=== PATIENT | female | born 1980 ===

== ENCOUNTER 2019-09-30 13:01 | Outpatient (CLI) | payer SELFPAY ==
[2019-09-30] MEDS ORDERED: LACTATED RINGERS 500 ML IV ONE (13:25)
[2019-09-30] MEDS ORDERED: LACTATED RINGERS 1,000 ML IV ONE (14:24)
[2019-09-30 14:28] LABS: Bacteria,Urine 2+ /HPF (Negative); Bilirubin,Urine NEG (Negative); Blood,Urine SM (Negative); Color,Urine Yellow (Yellow); Mucus,Urine FEW /HPF; Protein,Urine <15 mg/dL mg/dL (Negative); Urobilinogen,Urine < 2.0 mg/dL (<2.0)
[2019-09-30] MEDS ORDERED: cefTRIAXone/NS 1 GM/50 ML 1 GM/50 ML BAG IV ONE (16:15)
[2019-09-30] MEDS ORDERED: TERBUTALINE 1 MG/1 ML INJ SUB-Q ONE (16:39)
[2019-09-30] MEDS ORDERED: TERBUTALINE 1 MG/1 ML INJ ONE (16:39)
[2019-09-30] MEDS ORDERED: NIFEdipine*For Tocolysis only* 10 MG CAPSULE PO ONE ×2 (18:55→19:00)
[2019-09-30] MEDS ORDERED: NIFEdipine*For Tocolysis only* 10 MG CAPSULE PO SCH (19:00)
[2019-09-30 20:34] VITALS: BP 107/55
--- NOTE | 2019-09-30 21:38 | Event Note ---
Date: 09/30/19 Triage Note 09/30/2019: Patient presented to triage at 35 weeks, 2 days gestation with contractions. Patient denied leaking of fluid or vaginal bleeding. She states she had a small amount of spotting when wiping this AM and has had no further spotting. Patient denies fever, chills, flank pain, or malaise. Patient reports active movement. Contractions noted when patient arrived; resolved after IV hydration, one dose of SQ Brethine, and one dose of p.o. Procardia. Cervix thick and not dilated. No vaginal bleeding or leaking of fluid seen. Category 1 FHR tracing. BPP 8/8. Normal JOHN. Normal pelvic US. Urinalysis shows WBCs, RBCs. Rocephin 1 gram IV given. Patient states pain has resolved and she wants to go home. Consulted with Dr. Samuel re: this patient and all of the above and history of previous c-sections. Discharge home OK'd per Dr. Samuel. Advised patient to perform daily movement counting. Rx Augmentin called to [facility]. Advised pt. re: warning signs and signs of labor. Advised patient to follow up at [facility] on Wednesday.
--- NOTE | 2019-10-05 07:41 | Ultrasound Report ---
ULTRASOUND OBSTETRIC LIMITED ULTRASOUND BIOPHYSICAL PROFILE INDICATION / CLINICAL INFORMATION: abdominal pain, vaginal spotting. COMPARISON: None available. FINDINGS: BREATHING MOVEMENT = 2 GROSS BODY MOVEMENT = 2 TONE = 2 QUALITATIVE AMNIOTIC FLUID VOLUME = 2 TOTAL BIOPHYSICAL SCORE = 8/8 AMNIOTIC FLUID INDEX (cm) = 17.5 PRESENTATION: Cephalic. HEART RATE (beats per minute): 160 ADDITIONAL FINDINGS: The placenta is located posteriorly and appears unremarkable sonographically. IMPRESSION: 1. Biophysical Score = 8/8 2. No acute abnormality of the pelvis. Signer Name: Power Murillo MD Signed: 09/30/2019 3:47 PM Workstation Name: [id number]
== END 2019-09-30 21:35 | disposition home or self-care (01) ==
LOC: TRG 13:01 → APU 13:26 → TRG 21:35
PROVIDERS: ATTEND Obstetrics & Gynecology
DX: O46.93 Antepartum hemorrhage, unspecified, third trimester (principal); O09.523 Supervision of elderly multigravida, third trimester; Z3A.35 35 weeks gestation of pregnancy
CPT/HCPCS: 59025; 76815; 76819; 81001; 87086; 96365; 96372; J0696; J3105; J7120; 96360

== ENCOUNTER 2019-10-27 05:20 | Inpatient (IN) | payer OTHER ==
[2019-10-27] MEDS ORDERED: FAMOTIDINE 20 MG/2 ML INJ IV ONE (05:35)
[2019-10-27] MEDS ORDERED: METOCLOPRAMIDE 10 MG/2 ML INJ IV ONE (05:35)
[2019-10-27] MEDS ORDERED: BICITRA ORAL LIQD 30ML PO ONE (05:35)
[2019-10-27] MEDS: LACTATED RINGERS 1,000 ML IV SCH ×2 (05:45→07:11)
[2019-10-27] MEDS ORDERED: OXYTOCIN 20 UNIT/1000ML DRIP 20 UNITS/1,000 ML BAG IV SCH ×2 (06:00→10:00)
[2019-10-27 06:13] LABS: Basophils % (Auto) 0.3 % (0.0-1.8); Eosinophils # (Auto) 0.1 K/mm3 (0.0-0.4); Eosinophils % (Auto) 1.1 % (0.0-4.3); Hematocrit 36.1 % (30.3-42.9); Hemoglobin 12.5 gm/dl (10.1-14.3); Lymphocytes % (Auto) 26.1 % (13.4-35.0); Mean Corpuscular HGB Conc 35 % (30-34); Mean Corpuscular Volume 93 fl (79-97); Monocytes # (Auto) 0.7 K/mm3 (0.0-0.8); Monocytes % (Auto) 8.8 % (0.0-7.3); Platelet Count 212 K/mm3 (140-440); Red Blood Count 3.89 M/mm3 (3.65-5.03); Red Cell Distribution Width 13.6 % (13.2-15.2)
--- NOTE | 2019-10-27 06:56 | Anesthesia Consultation ---
Anesthesia Consult and Med Hx Date of service: 10/27/19 - Airway Anesthetic Teeth Evaluation: Good ROM Head & Neck: Adequate Mental/Hyoid Distance: Adequate Mallampati Class: Class II Intubation Access Assessment: Probably Good - Pulmonary Exam CTA: Yes - Cardiac Exam Cardiac Exam: RRR - Pre-Operative Health Status ASA Pre-Surgery Classification: ASA2 Proposed Anesthetic Plan: Epidural - Pulmonary Hx Smoking: No Hx Asthma: No COPD: No Hx Pneumonia: No Hx Sleep Apnea: No - Cardiovascular System Hx Hypertension: No - Central Nervous System Hx Seizures: No Hx Psychiatric Problems: No - Gastrointestinal Hx Gastroesophageal Reflux Disease: No - Endocrine Hx Renal Disease: No Hx End Stage Renal Disease: No Hx Hypothyroidism: No Hx Hyperthyroidism: No - Hematic Hx Anemia: No Hx Sickle Cell Disease: No - Other Systems Hx Alcohol Use: No
--- NOTE | 2019-10-27 06:57 | Anesthesia Day of Surgery ---
Anesthesia Day of Surgery - Day of Surgery Patient Examined: Yes Patient H&P Reviewed: Yes Patient is NPO: Yes Beta Blockers: No Cardiac Clearance: No Pulmonary Clearance: No Parker's Test: N/A
[2019-10-27] MEDS ORDERED: ONDANSETRON 4 MG/2 ML INJ ONE (07:01)
[2019-10-27] MEDS ORDERED: KETOROLAC 30 MG/1 ML INJ ONE (07:01)
[2019-10-27] MEDS ORDERED: BUPIVACAINE /DEX-WATER 0.75% (2 ML) AMPULE INFILTRATI ONE (07:01)
[2019-10-27] MEDS ORDERED: DEXMEDETOMIDINE 200 MCG/2 ML VIAL IV ONE (07:01)
[2019-10-27] MEDS ORDERED: ceFAZolin/Water 2 GM/20 ML 2 GM/20 ML SYRINGE IV ONE (07:17)
[2019-10-27] MEDS ORDERED: diphenhydrAMINE 50 MG/ML VIAL IV PRN (07:44)
[2019-10-27] MEDS ORDERED: NALOXONE 0.4 MG/1 ML INJ IV PRN ×2 (07:44→09:55)
[2019-10-27] MEDS ORDERED: NalbUPHINE 10 MG/1 ML INJ IV PRN (08:00)
[2019-10-27] MEDS ORDERED: ONDANSETRON 4 MG/2 ML INJ IV PRN ×2 (08:00→11:00)
[2019-10-27] MEDS ORDERED: PROMETHAZINE 25 MG TAB PO PRN (08:00)
[2019-10-27] MEDS ORDERED: PROMETHAZINE 25 MG RECT SUPP PR PRN (08:00)
[2019-10-27] MEDS ORDERED: HYDROmorphone 1 MG/1 ML INJ IV PRN (08:00)
[2019-10-27] MEDS ORDERED: BUPIVACAINE/PF (0.5%) 5 MG/1 ML 30 ML VIAL INFILTRATI ONE (08:21)
[2019-10-27] MEDS ORDERED: PHENYLEPHRINE/NS 1,000 MCG/10 ML SYRINGE (OR USE) IV ONE ×3 (08:24→09:29)
--- NOTE | 2019-10-27 08:36 | Progress Note ---
Spinal Anesthesia Block - Spinal Anesthesia Block Start Time: 08:08 Stop Time: 08:16 Performed by:: ERON VILLALOBOS (Lion PRATT) Procedure: Spinal anesthesia block is being performed for [C/S]. H&P, labs have been reviewed. Patient's questions and concerns have been answered. Informed consent has been performed. Timeout has was performed. Patient in sitting position on side of bed. Sterile prep and drape was performed. 3 mL 1% li docaine skin wheal at L [3]-L [4]. Needle introducer advanced. 25-gauge spinal needle advanced, [+] CSF [-] blood. [] Spinal dose was given. All needles removed. Patient tolerated procedure well.
[2019-10-27] MEDS ORDERED: ceFAZolin/STERILE WATER 2 GM/20 ML SYRINGE IV ONE (08:37)
[2019-10-27] MEDS ORDERED: WATER FOR IRRIG STERILE 1,500 ML BOTTLE IR ONE (08:40)
[2019-10-27] MEDS ORDERED: SODIUM CHLORIDE 0.9% IRR 1,500 ML BOTTLE IR ONE (08:40)
--- NOTE | 2019-10-27 09:54 | Procedure Note ---
OB Delivery Note - Delivery Date of Delivery: 10/27/19 Surgeon: CHRIST AL Estimated blood loss: other (800 cc) - Section Preop diagnosis: repeat , desires sterilization Postop diagnosis: same section procedure: section, repeat low transverse, bilateral tubal ligation Disposition: PACU Complications: none Narrative: Indication: 39-year-old at 39 weeks and 2 days with a history of 3 C- sections is here for scheduled repeat low-transverse as well as bilateral tubal ligation for sterilization. Findings: Normal uterus, tubes and ovaries. Clear fluid. No nuchal cord. Moderate subcutaneous tissue scarring. No significant intra-abdominal scarring Procedure: Patient taken to the operating room and prepped and draped in the usual fashion. Pfannenstiel skin incision was made and carried down to the underlying fascia. Fascia was incised and the incision was extended bilaterally. Rectus fascia dissected off the rectus muscle both superiorly and inferiorly. Peritoneum identified tented up and entered. Peritoneal incision extended superiorly and inferiorly with good visualization of the bladder. Bladder blade was placed. Uterine incision was made and the incision was extended bilaterally. The baby was delivered from in the typical vertex fashion. Baby bulb suctioned at the incision site and again after delivery. Cord was delayed clamped and cut and handed off to waiting team. The placenta was delivered spontaneously. The uterus was exteriorized and cleared of all clots and debris. Uterine incision closed with 0 Vicryl in a running locked fashion followed by a second imbricating layer of 0 Vicryl. Good hemostasis was noted after a few additional [id number] stitches.. Her urine was clear. Attention was turned to the tubal ligation. Both tubes were ligated using 0 chromic x2 on each side. This was done successfully and without difficulty on both sides with good hemostasis noted afterwards, even after the uterus, tubes and ovaries were back in the abdominal cavity. The segments of tubes on each side were sent to pathology. Uterus tubes and ovaries were returned to the abdominal cavity. Gutters were cleared of all clots and debris and the pelvis was well irrigated. Good hemostasis noted. Interceed placed over the uterine incision and over the lower uterine segment in the midline. Attention was turned to the rectus fascia which was reapproximated with 0 Vicryl in a running fashion. Subcutaneous tissue was irrigated and reapproximated with 2-0 Vicryl in a running fashion. Skin was closed with 4-0 Vicryl in a subcuticular fashion followed by Dermabond. The procedure was concluded at this point and the patient tolerated the procedure well. All instrument and lap counts were correct. - Infant A at 1 minute: 8 at 5 minutes: 9 Gender: Female
[2019-10-27] MEDS ORDERED: SIMETHICONE 80 MG CHEW TAB PO PRN (09:57)
--- NOTE | 2019-10-27 10:42 | Progress Note ---
Regional Anesthesia Block - Regional Anesthesia Block Start Time: 10:06 Stop Time: 10:12 Performed By:: ERON VILLALOBOS (Lion PRATT) Procedure: Patient consented for TAP block for post surgical pain management. Patient identified, monitors placed, and time out performed. TAP identified bilaterally via ultrasound. Skin prepped bilaterally with [chlorhexidine] and [20g stimuplex] needle advanced to the TAP. 30ml [Marcaine 0.25% with 25mcg Precedex] injected under ultrasound guidance on the [left] side. 30ml [Marcaine 0.25% with 25mcg Precedex] injected under ultrasound guidance on the [right] side.
[2019-10-27] MEDS ORDERED: LANOLIN/ZINC/DIMETHICONE (LANSINOH) 7 GM TP PRN (11:00)
[2019-10-27] MEDS ORDERED: WITCH HAZEL/ GLYCERIN PAD TP PRN (11:00)
[2019-10-27] MEDS ORDERED: oxyCODONE /ACETAMINOPHEN 5-325MG TAB PO PRN (11:00)
[2019-10-27] MEDS: D5W/LACTATED RINGERS 1,000 ML IV SCH ×2 (12:40→22:51)
[2019-10-27] MEDS ORDERED: MAGNESIUM HYDROXIDE (MOM) ORAL LIQD UDC PO PRN (22:00)
[2019-10-27] MEDS ORDERED: SENNOSIDES 8.6 MG TAB PO PRN (22:00)
[2019-10-27] MEDS: KETOROLAC 30 MG/1 ML INJ IV PRN (22:49)
[2019-10-28] MEDS: KETOROLAC 30 MG/1 ML INJ IV PRN (05:49)
[2019-10-28 08:02] LABS: Hematocrit 35.6 % (30.3-42.9); Hemoglobin 12.3 gm/dl (10.1-14.3)
--- NOTE | 2019-10-28 13:03 | Post Anesthesia Evaluation ---
- Post Anesthesia Evaluation Patient Participated: Yes Airway Patent: Yes Stable Respiratory Function: Yes Nausea/Vomiting: No Temp > 96.8F: Yes Pain Manageable: Yes Adequeate Hydration: Yes Anesthesia Complications: No Block Receding Appropriately: Yes Patient on Ventilator: No
--- NOTE | 2019-10-28 13:53 | Progress Note ---
Assessment and Plan A: /postop day 1 S/P repeat LTCS. P: Continue current managment. Encouraged ambulation. Subjective - Subjective Date of service: 10/28/19 Principal diagnosis: /postop day 1 S/P repeat LTCS Patient reports: appetite normal, voiding normally, pain well controlled, flatus, no dizzy ambulation, no bowel movement, no ambulating normally, no nauseated : doing well Objective - Vital Signs Latest vital signs: Vital Signs Temp Pulse Resp BP Pulse Ox 10/28/19 09:12 97.9 F 81 18 113/63 98 10/28/19 00:30 98.0 F 96 H 20 114/69 95 10/27/19 16:57 98.1 F 82 18 129/76 97 Intake and Output 10/27/19 10/28/19 10/28/19 23:59 07:59 15:59 Intake Total 1000 240 Output Total 4000 901 Balance -3000 -661 Intake: IV 1000 D5lr 1,000 ml @ 125 mls/ 1000 hr IV DIRECT YAZMIN Rx#: [id number] Oral 240 Output: Urine 4000 901 Indwelling Catheter 4000 Void 901 Other: Total, Intake Amount 240 Total, Output Amount 2200 900 # Voids Void 1 - Exam Cardiovascular: Present: Regular rate, Normal S1, Normal S2, No murmurs Lungs: Present: Clear to auscultation Abdomen: Present: normal appearance, soft, normal bowel sounds. Absent: distention, tenderness, guarding, rigidity Uterus: Present: normal, firm, fundal height below umbilicus. Absent: bogginess, tenderness Extremities: Present: normal, edema. Absent: tenderness Incision: Present: normal, dry, intact, dressed
[2019-10-28] MEDS: IBUPROFEN 800 MG TAB PO PRN (18:29)
[2019-10-29] MEDS: IBUPROFEN 800 MG TAB PO PRN ×2 (01:50→10:55)
--- NOTE | 2019-10-29 15:45 | Progress Note ---
Assessment and Plan A: /postop day 2 S/P repeat LTCS. Patient requests discharge home today. P: Discharge patient home today. Discussed with patient /postop discharge instructions and warning signs. Care of incision and activity restrictions discussed with patient. Advised patient to continue taking vitamin. Advised patient to avoid intercourse, lifting and housework, stair climbing, and tub baths (patient may take showers). Advised patient to follow up at [facility] in 1 week. Patient voiced understanding of all in structions. Subjective - Subjective Date of service: 10/29/19 Principal diagnosis: /postop day 2 S/P repeat LTCS with BTL Interval history: day 2 S/P repeat LTCS with BTL. Paient requests discharge home today. Dr. Samuel states it it OK to discharge patient home today. Patient reports: appetite normal, voiding normally, pain well controlled, flatus, ambulating normally, no dizzy ambulation [place]: doing well Objective - Vital Signs Latest vital signs: Vital Signs Temp Pulse Resp BP Pulse Ox 10/29/19 08:54 97.8 F 20 131/75 10/29/19 00:11 98.0 F 82 16 115/60 96 10/28/19 17:37 97.9 F 70 18 110/54 96 10/28/19 17:26 97.9 F 87 18 124/77 96 Intake and Output 10/28/19 10/29/19 10/29/19 23:59 07:59 15:59 Intake Total 360 480 200 Balance 360 480 200 Intake: Oral 200 Intake, Free Water 360 480 Other: Total, Intake Amount 200 # Voids Void 1 1 1 - Exam Breasts: Present: deferred Cardiovascular: Present: Regular rate, Normal S1, Normal S2, No murmurs Lungs: Present: Clear to auscultation Abdomen: Present: normal appearance, soft, normal bowel sounds. Absent: distention, tenderness, guarding, rigidity Uterus: Present: normal, firm, fundal height below umbilicus. Absent: bogginess, tenderness Extremities: Present: normal. Absent: tenderness, edema Incision: Present: normal, dry, intact
--- NOTE | 2019-10-29 16:05 | Discharge Summary ---
Providers - Providers Date of Admission: 10/27/19 05:20 Date of discharge: 10/29/19 Attending physician: SOMMER HELLER JR, MD Primary care physician: SOMMER HELLER JR, MD Hospitalization Reason for admission: section Delivery: Procedure: section Incision: normal, dry, intact Other procedures: none complications: none Discharge diagnosis: IUP at term delivered baby: male Pertinent studies: Labs Hospital course: Normal hospital course. Condition at discharge: Good Disposition: DC-[id number] TO HOME OR SELFCARE - Discharge Diagnoses (1) Term delivered Status: Acute Plan - Discharge Medications Prescriptions: Ibuprofen [Motrin 800 MG tab] 800 mg PO Q6H PRN #30 tablet PRN Reason: Pain, Mild (1-3) oxyCODONE /ACETAMINOPHEN [Percocet 5/325 mg] 1 tab PO Q6H PRN #30 tablet PRN Reason: Pain, Moderate (4-6) - Provider Discharge Summary Activity: routine, no sex for 6 weeks, no heavy lifting 4 weeks, no strenuous exercise Diet: routine Instructions: routine Additional instructions: Continue taking your vitamin and iron. Follow up at [facility] in 1 week (call the office to make and appointment). Call your doctor immediately for: * Fever > 100.5 * Heavy vaginal bleeding ( >1 pad per hour) * Severe persistent headache * Shortness of breath * Reddened, hot, painful area to leg or breast * Drainage or odor from incision. * Keep incision clean and dry at all times and follow doctor's instructions regarding bathing/showering - Follow up plan Follow up: SOMMER HELLER JR, MD [Primary Care Provider] - 7 Days
[2019-10-29 16:17] VITALS: BP 123/79
== END 2019-10-29 18:45 | disposition home or self-care (01) | DRG 785 ==
LOC: APU 05:20 → OB 11:37
PROVIDERS: ADMIT Obstetrics & Gynecology; ATTEND Obstetrics & Gynecology
PROC: 10D00Z1 Extraction of Products of Conception, Low, Open Approach (ICD-10-PCS; principal; 2019-10-27)
PROC: 0UB70ZZ Excision of Bilateral Fallopian Tubes, Open Approach (ICD-10-PCS; 2019-10-27)
DX: O34.211 Maternal care for low transverse scar from previous cesarean delivery (principal); Z3A.39 39 weeks gestation of pregnancy; Z37.0 Single live birth; Z30.2 Encounter for sterilization
CPT/HCPCS: 36415; 85014; 85018; 85025; 86592; 86850; 86900; 86901; 88302; G0378; C1765; J0690; J1885; J2370; J2405; J2590; J2765; J3490; J7120; J7121